=== PATIENT | female | born 2000 | race Two or more races ===

== ENCOUNTER 2018-09-09 21:14 | Emergency (ER) | payer OTHER ==
[~2018-09-09] VITALS: Ht 160 cm; Wt 97.5 kg
[2018-09-09 21:32] VITALS: BP 138/79
--- NOTE | 2018-09-09 21:32 | NUR ---
pt bibmom for lt foot pain; pt [id number], -sob, nad noted, vss, pending md limon
[2018-09-09] MEDS ORDERED: KETOROLAC TROMETHAMINE INJ 60 MG/2 ML VIAL IM ONE ×2 (21:56→22:00)
== END 2018-09-09 22:25 | disposition home or self-care (01) ==
LOC: ER 21:18
DX: M79.672 Pain in left foot (principal); J45.909 Unspecified asthma, uncomplicated
CPT/HCPCS: 73630; 96372; 99283; J1885

== ENCOUNTER 2020-05-24 09:30 | Emergency (ER) | payer OTHER ==
[~2020-05-24] VITALS: Ht 160 cm; Wt 104.3 kg
--- NOTE | 2020-05-24 09:48 | NUR ---
DR VERDIN AT THE BEDSIDE.
--- NOTE | 2020-05-24 09:50 | NUR ---
URINE COLLECTED AND SENT IT TO THE LAB.
--- NOTE | 2020-05-24 09:50 | NUR ---
The patient is bib her mother for c/o on & off dizziness x 1 month, on & off vaginal bleeding x 4 months. The patient denies SOB. In room air, respiration regular and unlabored. Denies pain. The patient is attached on a monitor. Warm blanket provided for comfort. Will continue to monitor.
[2020-05-24 10:16] LABS: BILIRUBIN,URINE SMALL (NEGATIVE); COLOR,URINE YELLOW (YELLOW); LEUKOCYTE ESTERASE ,URINE Negative (NEGATIVE); NITRITE, URINE Negative (NEGATIVE); PROTEIN,URINE 30 mg/dl (NEGATIVE); UGLUCOSE Negative (NEGATIVE); UROBILINOGEN,URINE 0.2 EU/dL (0.2)
--- NOTE | 2020-05-24 10:24 | NUR ---
STARTED LINE ON LAC G 18, BLOOD COLLECTED AND SENT IT TO THE LAB
[2020-05-24 10:27] LABS: BACTERIA,URINE Few /HPF (None Seen); CALCIUM OXALATE CRYSTALS,UR Few /HPF (None Seen); RBC,URINE 51-80 /HPF (0-2); SQUAMOUS EPITHELIAL CELL,UR Many /HPF (None Seen)
[2020-05-24 10:30] LABS: BASOPHILS # (AUTO) 0.1 /CMM (0.0-0.2); BASOPHILS % (AUTO) 0.6 % (0.0-2.0); EOSINOPHILS % (AUTO) 1.4 % (0.0-6.0); HEMATOCRIT 38 % (33-45); HEMOGLOBIN 12.7 g/dL (11.5-14.8); LYMPHOCYTES # (AUTO) 2.3 /CMM (0.8-4.8); LYMPHOCYTES % (AUTO) 26.8 % (20.0-44.0); MEAN CORPUSCULAR HGB CONC 34 g/dl (31.0-36.0); MEAN CORPUSCULAR VOLUME 87 fL (82-100); MONOCYTES # (AUTO) 0.5 /CMM (0.1-1.30); NEUTROPHILS # (AUTO) 5.7 /CMM (1.8-8.9); NEUTROPHILS % (AUTO) 65.2 % (43.0-81.0); PLATELET COUNT (AUTO) 330 /CMM (150-450); RED BLOOD CELL COUNT(AUTO) 4.38 MIL/uL (4.0-5.2); WHITE BLOOD COUNT (AUTO) 8.8 K/uL (4.3-11.0)
[2020-05-24 10:39] LABS: CALCIUM, SERUM 9.1 mg/dL (8.5-10.1); CREATININE 0.7 mg/dL (0.6-1.3); POTASSIUM 3.9 mmol/L (3.5-5.1)
[2020-05-24 10:44] LABS: BILIRUBIN,DIRECT 0.1 mg/dL (0.0-0.2); BILIRUBIN,TOTAL 0.3 mg/dL (0.2-1.0); TOTAL PROTEIN, SERUM 8.2 g/dL (6.4-8.2)
[2020-05-24 11:28] VITALS: BP 135/84
--- NOTE | 2020-05-24 11:28 | NUR ---
The patient is alert and oriented x4. Denies pain. Respiation regular and unlabored. Denies sob. Patient discharged to home in stable condition. Written and verbal after care instructions given. Patient verbalizes understanding of instruction. The patient left ER in stable condition.
== END 2020-05-24 11:29 | disposition home or self-care (01) ==
LOC: ER 09:34
DX: N93.9 Abnormal uterine and vaginal bleeding, unspecified (principal); R53.83 Other fatigue; R74.01 Elevation of levels of liver transaminase levels; J45.909 Unspecified asthma, uncomplicated
CPT/HCPCS: 36415; 76856-TC; 80048-TC; 80076-TC; 81001; 84703-TC; 85025-TC; 85730-TC; 86850-TC